=== PATIENT | female | born 1995 | race African-American/Black ===

== ENCOUNTER 2024-06-19 15:49 | Emergency (ER) | payer MEDICAID ==
[~2024-06-19] VITALS: Ht 160 cm; Wt 68.0 kg
[2024-06-19 16:06] VITALS: O2SAT 100
[2024-06-19] MEDS ORDERED: BO1 TP (16:26)
[2024-06-19] MEDS: TETANUS, DIPHTHERIA, PERTUSSIS VAC/PF 0.5ML (>10YR OLD) IM ONE (17:04)
[2024-06-19] MEDS: BACITRACIN ZINC OINT UDPKT TOP ONE (17:05)
[2024-06-19 17:13] VITALS: BP 114/73; PULSE 82; RESP 16; TEMP 36.8; O2SAT 97
== END 2024-06-19 17:10 | disposition home or self-care (01) ==
LOC: ER 15:49
DX: S01.312A Laceration without foreign body of left ear, initial encounter (principal); W22.8XXA Striking against or struck by other objects, initial encounter; Y93.01 Activity, walking, marching and hiking; Y92.89 Other specified places as the place of occurrence of the external cause; Y99.8 Other external cause status
CPT/HCPCS: 12011; 90471; 90715; 99283